=== PATIENT | female | born 1985 | race Caucasian/White ===

== ENCOUNTER → 2017-07-31 | Outpatient (CLI) | payer BC, MEDICAID ==
--- NOTE | 2017-07-31 16:43 | RADIOLOGY REPORT (SQ) ---
EXAM DESCRIPTION: KNEE RIGHT 3 VIEWS COMPLETED DATE/TIME: 07/31/2017 4:26 pm REASON FOR STUDY: LOCALIZED SWELLING, MASS AND LUMP, RIGHT LOWER LIMB R22.41 LOCALIZED SWELLING, MA SS AND LUMP, RIGHT LOWER LIMB COMPARISON: None. NUMBER OF VIEWS: Three views. TECHNIQUE: AP, lateral, and sunrise patella radiographic images acquired of the right knee. LIMITATIONS: None. FINDINGS: MINERALIZATION: Normal. BONES: No acute fracture or dislocation. No worrisome bone lesions. JOINT: No effusion. SOFT TISSUES: No soft tissue swelling. No radio-opaque foreign body. OTHER: No other significant finding. IMPRESSION: NEGATIVE STUDY OF THE RIGHT KNEE. NO RADIOGRAPHIC EVIDENCE OF ACUTE INJURY. TECHNICAL DOCUMENTATION: JOB ID: [id number] [email or web address]- All Rights Reserved
== END ==
LOC: OD 15:18
PROVIDERS: ATTEND Physician Assistant
DX: R22.41 Localized swelling, mass and lump, right lower limb (principal)

== ENCOUNTER 2019-04-22 10:15 | Outpatient (CLI) | payer MEDICAID | END 2019-04-22 11:35 | disposition home or self-care (01) | LOC: LC 10:15 | PROVIDERS: ATTEND Obstetrics & Gynecology | PROC: 4A1HXCZ Monitoring of Products of Conception, Cardiac Rate, External Approach (ICD-10-PCS; principal; 2019-04-22) | DX: O36.8330 Maternal care for abnormalities of the fetal heart rate or rhythm, third trimester, not applicable or unspecified (principal); Z3A.34 34 weeks gestation of pregnancy | CPT/HCPCS: 59025 ==

== ENCOUNTER → 2019-05-04 | Outpatient (CLI) | payer MEDICAID ==
--- NOTE | 2019-05-04 15:22 | RADIOLOGY REPORT (SQ) ---
EXAM DESCRIPTION: VENOUS BILATERAL LOWER COMPLETED DATE/TIME: 05/04/2019 1:38 pm REASON FOR STUDY: EDEMA COMPARISON: CT abdomen and pelvis 08/25/2010 TECHNIQUE: Dynamic and static soriano scale and color images acquired of both lower extremity venous sy stems. Selected spectral images acquired with additional compression and augmentation maneuvers. Imag es stored on PACS. LIMITATIONS: None. FINDINGS: RIGHT LEG COMMON FEMORAL AND FEMORAL: Normal phasicity, compression and augmentation. No visualized echogenic m aterial on soriano scale. No defects on color images. POPLITEAL: Normal compression and augmentation. No visualized echogenic material on soriano scale. No de fects on color images. CALF VESSELS: Normal compression and augmentation. No visualized echogenic material on soriano scale. No defects on color image. GSV AND SSV: Normal compression. No visualized echogenic material on soriano scale. No defects on color images. ANY DEEP VENOUS INSUFFICIENCY: Not evaluated. ANY EVIDENCE OF POPLITEAL CYST: No. OTHER: No other significant finding. LEFT LEG COMMON FEMORAL AND FEMORAL: Normal phasicity, compression and augmentation. No visualized echogenic m aterial on soriano scale. No defects on color images. POPLITEAL: Normal compression and augmentation. No visualized echogenic material on soriano scale. No de fects on color images. CALF VESSELS: Normal compression and augmentation. No visualized echogenic material on soriano scale. No defects on color images. GSV AND SSV: Normal compression. No visualized echogenic material on soriano scale. No defects on color images. ANY DEEP VENOUS INSUFFICIENCY: Not evaluated. ANY EVIDENCE POPLITEAL CYST: No. OTHER: No other significant finding. IMPRESSION: NO EVIDENCE DVT OR SVT IN EITHER LEG. TECHNICAL DOCUMENTATION: JOB ID: [id number] [place] [employer]- All Rights Reserved Reading location - IP/workstation name: [email or web address] [email or web address]
== END ==
LOC: SP 11:15
PROVIDERS: ATTEND Advanced Practice Midwife
DX: O26.893 Other specified pregnancy related conditions, third trimester (principal); I83.93 Asymptomatic varicose veins of bilateral lower extremities; R60.0 Localized edema; Z3A.34 34 weeks gestation of pregnancy
CPT/HCPCS: 93970

== ENCOUNTER 2019-05-25 11:15 | Outpatient (CLI) | payer MEDICAID ==
[2019-05-25 12:08] LABS: APPEARANCE,URINE CLEAR; BILIRUBIN,URINE NEGATIVE (NEGATIVE); COLOR,URINE YELLOW; GLUCOSE, URINE NEGATIVE (NEGATIVE); KETONES,URINE NEGATIVE (NEGATIVE); LEUKOCYTE ESTERASE,URINE NEGATIVE (NEGATIVE); NITRITE,URINE NEGATIVE (NEGATIVE); PROTEIN,URINE NEGATIVE (NEGATIVE); URINE SPECIFIC GRAVITY 1.006; UROBILINOGEN,URINE NEGATIVE mg/dL (<2.0)
[2019-05-25 12:17] LABS: ABSOLUTE EOSINOPHILS # (AUTO) 0.1 10^3/uL (0.0-0.6); ABSOLUTE LYMPHOCYTES (AUTO) 2.1 10^3/uL (0.5-4.7); ABSOLUTE MONOCYTES (AUTO) 0.8 10^3/uL (0.1-1.4); ABSOLUTE NEUT (AUTO) 7.4 10^3/uL (1.7-8.2); BASOPHILS % (AUTO) 0.3 % (0-2); EOSINOPHILS % (AUTO) 1.3 % (0-6); HEMATOCRIT 35.2 % (36.0-47.0); HEMOGLOBIN 12.1 g/dL (12.0-15.5); MEAN CORPUSCULAR HEMOGLOBIN 32.3 pg (27.0-33.4); MEAN CORPUSCULAR HGB CONC 34.4 g/dL (32.0-36.0); MEAN CORPUSCULAR VOLUME 94 fl (80-97); MONOCYTES % (AUTO) 7.3 % (3-13); PLATELET COUNT 188 10^3/uL (150-450); RED BLOOD COUNT 3.75 10^6/uL (3.72-5.28); RED CELL DISTRIBUTION WIDTH 13.5 % (11.5-14.0); SEGMENTED NEUTROPHILS % (AUTO) 71.1 % (42-78); TOTAL CELLS COUNTED % (AUTO) 100 %; WHITE BLOOD COUNT 10.4 10^3/uL (4.0-10.5)
[2019-05-25 12:31] LABS: ALBUMIN 2.9 g/dL (3.5-5.0); ALKALINE PHOSPHATASE 193 U/L (38-126); ANION GAP 6 (5-19); ASPARTATE AMINO TRANSFERASE 29 U/L (14-36); BILIRUBIN,DIRECT 0.2 mg/dL (0.0-0.4); BILIRUBIN,TOTAL 0.3 mg/dL (0.2-1.3); BLOOD UREA NITROGEN 4 mg/dL (7-20); CALCIUM 8.8 mg/dL (8.4-10.2); CARBON DIOXIDE 26 mmol/L (22-30); CHLORIDE 107 mmol/L (98-107); GLUCOSE 80 mg/dL (75-110); POTASSIUM 3.5 mmol/L (3.6-5.0); TOTAL PROTEIN 6.1 g/dL (6.3-8.2); URIC ACID 4.1 mg/dL (2.5-6.2)
[2019-05-25 12:34] LABS: URINE AMPHETAMINES SCREEN NEGATIVE; URINE BARBITURATES SCREEN NEGATIVE; URINE BENZODIAZEPINES SCREEN NEGATIVE; URINE COCAINE SCREEN NEGATIVE; URINE MARIJUANA (THC) SCREEN NEGATIVE; URINE METHADONE SCREEN NEGATIVE; URINE PHENCYCLIDINE SCREEN NEGATIVE
[2019-05-25 12:35] LABS: UR PRO/CREAT RATIO RESULT 0.5 mg/mg (0.0-0.2); URINE PROTEIN 21.5 mg/dL (<12)
--- NOTE | 2019-05-25 14:02 | Non Stress Test Report ---
Non Stress Test Datetime Report Generated by CPN: 05/25/2019 14:02 DEMOGRAPHIC EGA NST: 39.0 EGA NST: 34.2 INDICATION Indication for Study (NST) Other: pre-eclampsia Indication for Study (NST) Other: variable in office MONITORING Monitor Explained: Monitor Explained; Test Explained; Patient Verbalized Understanding Monitor Explained: Monitor Explained; Test Explained; Patient Verbalized Understanding Time on Monitor: 05/25/2019 11:35 Time on Monitor: 04/22/2019 10:25 Time on Monitor: 04/22/2019 10:24 Time off Monitor: 05/25/2019 12:58 Time off Monitor: 04/22/2019 11:27 NST Duration: 83 NST Duration: 62 NST INTERVENTIONS NST Interventions: PO Hydration; Reposition Patient NST Interventions: PO Hydration NST Interventions: PO Hydration Physician Notified NST: Dr Gaming Physician Notified NST: C [place] BABY A: [id number] BABY A Movement : Present Movement : Present Contraction Frequency : 0 Contraction Frequency : none noted Contraction Frequency : none noted FHR Baseline : 130 FHR Baseline : 125 Accelerations : 15X15 Accelerations : 15X15 Decelerations : None Decelerations : None Variability : Moderate 6-25bpm Variability : Moderate 6-25bpm NST Review: Meets Criteria for Reactive NST NST Review: Meets Criteria for Reactive NST NST Review: Meets Criteria for Reactive NST NST Review and Verified By : NGOC GREENE RN NST Review and Verified By : Leena Gil RNC NST Results: Reactive NST Results: Reactive NST COMMENTS NST Comments: Plan discussed with Sophie Alba CNM NST REPORT Report Trigger: Send Report
== END 2019-05-25 14:22 | disposition home or self-care (01) ==
LOC: LC 11:15
PROVIDERS: ATTEND Obstetrics & Gynecology Gynecology
PROC: 4A1HXCZ Monitoring of Products of Conception, Cardiac Rate, External Approach (ICD-10-PCS; principal; 2019-05-25)
DX: O14.93 Unspecified pre-eclampsia, third trimester (principal); Z3A.38 38 weeks gestation of pregnancy
CPT/HCPCS: 59025; 80053; 80307; 81001; 82570; 83615; 84156; 84550; 85025

== ENCOUNTER 2019-05-28 12:27 | Outpatient (CLI) | payer MEDICAID ==
[2019-05-28 13:52] LABS: ABSOLUTE EOSINOPHILS # (AUTO) 0.1 10^3/uL (0.0-0.6); ABSOLUTE LYMPHOCYTES (AUTO) 1.8 10^3/uL (0.5-4.7); ABSOLUTE MONOCYTES (AUTO) 0.7 10^3/uL (0.1-1.4); ABSOLUTE NEUT (AUTO) 7.4 10^3/uL (1.7-8.2); BASOPHILS % (AUTO) 0.3 % (0-2); EOSINOPHILS % (AUTO) 0.9 % (0-6); HEMATOCRIT 36.4 % (36.0-47.0); HEMOGLOBIN 12.6 g/dL (12.0-15.5); LYMPHOCYTES % (AUTO) 17.6 % (13-45); MEAN CORPUSCULAR HEMOGLOBIN 32.4 pg (27.0-33.4); MEAN CORPUSCULAR HGB CONC 34.5 g/dL (32.0-36.0); MEAN CORPUSCULAR VOLUME 94 fl (80-97); MONOCYTES % (AUTO) 6.9 % (3-13); PLATELET COUNT 186 10^3/uL (150-450); RED BLOOD COUNT 3.88 10^6/uL (3.72-5.28); RED CELL DISTRIBUTION WIDTH 13.5 % (11.5-14.0); SEGMENTED NEUTROPHILS % (AUTO) 74.3 % (42-78); TOTAL CELLS COUNTED % (AUTO) 100 %
[2019-05-28 13:59] LABS: APPEARANCE,URINE SLIGHTLY-CLOUDY; BILIRUBIN,URINE NEGATIVE (NEGATIVE); COLOR,URINE YELLOW; GLUCOSE, URINE NEGATIVE (NEGATIVE); KETONES,URINE NEGATIVE (NEGATIVE); LEUKOCYTE ESTERASE,URINE NEGATIVE (NEGATIVE); NITRITE,URINE NEGATIVE (NEGATIVE); PROTEIN,URINE NEGATIVE (NEGATIVE); URINE SPECIFIC GRAVITY 1.009; UROBILINOGEN,URINE NEGATIVE mg/dL (<2.0)
[2019-05-28 14:13] LABS: ALKALINE PHOSPHATASE 200 U/L (38-126); ANION GAP 8 (5-19); ASPARTATE AMINO TRANSFERASE 31 U/L (14-36); BILIRUBIN,DIRECT 0.2 mg/dL (0.0-0.4); BILIRUBIN,TOTAL 0.5 mg/dL (0.2-1.3); BLOOD UREA NITROGEN 5 mg/dL (7-20); CARBON DIOXIDE 26 mmol/L (22-30); CHLORIDE 105 mmol/L (98-107); GLUCOSE 70 mg/dL (75-110); POTASSIUM 3.3 mmol/L (3.6-5.0); TOTAL PROTEIN 6.3 g/dL (6.3-8.2); URIC ACID 4.3 mg/dL (2.5-6.2)
[2019-05-28 14:48] LABS: UR PRO/CREAT RATIO RESULT 0.4 mg/mg (0.0-0.2); URINE CREATININE 63.4 mg/dL (16-327); URINE PROTEIN 22.3 mg/dL (<12)
[2019-05-28 14:52] LABS: URINE AMPHETAMINES SCREEN NEGATIVE; URINE BARBITURATES SCREEN NEGATIVE; URINE BENZODIAZEPINES SCREEN NEGATIVE; URINE COCAINE SCREEN NEGATIVE; URINE MARIJUANA (THC) SCREEN NEGATIVE; URINE METHADONE SCREEN NEGATIVE; URINE PHENCYCLIDINE SCREEN NEGATIVE
== END 2019-05-28 15:16 | disposition home or self-care (01) ==
LOC: LC 12:27
PROVIDERS: ATTEND Obstetrics & Gynecology
PROC: 4A1HXCZ Monitoring of Products of Conception, Cardiac Rate, External Approach (ICD-10-PCS; principal; 2019-05-28)
DX: O14.93 Unspecified pre-eclampsia, third trimester (principal); Z3A.38 38 weeks gestation of pregnancy
CPT/HCPCS: 36415; 59025; 80053; 80307; 81001; 82570; 83615; 84156; 84550; 85025; 86850; 86900; 86901

== ENCOUNTER 2019-05-29 01:18 | Inpatient (IN) | payer MEDICAID ==
[2019-05-29 01:56] LABS: APPEARANCE,URINE CLEAR; BILIRUBIN,URINE NEGATIVE (NEGATIVE); GLUCOSE, URINE NEGATIVE (NEGATIVE); KETONES,URINE NEGATIVE (NEGATIVE); LEUKOCYTE ESTERASE,URINE TRACE (NEGATIVE); NITRITE,URINE NEGATIVE (NEGATIVE); PROTEIN,URINE NEGATIVE (NEGATIVE); URINE SPECIFIC GRAVITY 1.002; UROBILINOGEN,URINE NEGATIVE mg/dL (<2.0)
[2019-05-29 01:57] LABS: COLOR,URINE YELLOW
[2019-05-29 02:09] LABS: URINE AMPHETAMINES SCREEN NEGATIVE; URINE BARBITURATES SCREEN NEGATIVE; URINE BENZODIAZEPINES SCREEN NEGATIVE; URINE COCAINE SCREEN NEGATIVE; URINE MARIJUANA (THC) SCREEN NEGATIVE; URINE METHADONE SCREEN NEGATIVE; URINE PHENCYCLIDINE SCREEN NEGATIVE
--- NOTE | 2019-05-29 02:53 | Admission Physical ---
Datetime Report Generated by CPN: 05/29/2019 02:53 CURRENT ADMISSION Chief Complaint: Uterine Contractions Indication for Induction: Not Applicable Admit Impression : Term, Intrauterine ; Active Labor; Intact Membranes Admit Plan: Admit to Unit; Initiate Labor Protocol ALLERGIES Medication Allergies: Yes Medication Allergies: No Known Allergies (05/29/2019) Latex: No Latex Allergies Food Allergies: no Environmental Allergies: no OBSTETRICAL HISTORY EDC: 06/01/2019 00:00 : 3 Para: 2 Term: 2 : 0 SAB: 0 IAB: 0 Livin Gestational Diabetes: No Rh Sensitization: No Incompetent Cervix: No FELICITY: No Infertility: No ART Treatment: No Uterine Anomaly: No IUGR: No Hx Previous C/S: No Macrosomia: No Hx Loss/Stillborn: No PIH: Yes Hx : No Placenta Previa/Abruption: No Depression/PP Depression: No PTL/PROM: No Post Hemorrhage: No Current Procedures: Ultrasound; NST Obstetrical History Comments: g1-2013 girl g2-2015 boy g3- current baby boy SEE RECORDS Alcohol: No Marijuana : No Cocaine: No Other Illicit Drugs: No Cigarettes: Current Everyday Smoker. 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 Heart Disease: No Hosp/Surgery: No Autoimmune Disorder: No Anesthetic Complications: No Kidney Disease: No Abnormal Pap Smear: No Neuro/Epilepsy: No Psychiatric Disorders: No Other Medical Diseases: No Hepatitis/Liver Disease: No Significant Family History: No Varicosities/Phlebitis: No Trauma/Violence : No Thyroid Dysfunction: No INFECTIOUS HISTORY Gonorrhea: No Genital Herpes: No Chlamydia: No Tuberculosis: No Syphilis: No Hepatitis: No HIV/AIDS Exposure: No Rash or Viral Illness: No HPV: No PHYSICAL EXAM General: Normal HEENT: Normal Neurologic: Normal Thyroid: Normal Heart: Normal Lungs: Normal Breast: Normal Back: Normal Abdomen: Normal Genitourinary Exam: Normal Extremities: Normal DTRs: Normal Pelvic Type: Adequate Vital Signs: Reviewed; Within Normal Limits VAGINAL EXAM Dilatation: 4 Effacement: 70 Station: -2 Contraction Comments: irregular MEMBRANES Membranes: Intact FETUS A EGA: 39.4 Monitoring: External US FHR- Baseline: 120s Variability: Moderate 6-25bpm Accelerations: 15X15 Decelerations: None FHR Category: Category I Admit Comment: w/ an IUP@ 39-3/7 weeks presented to L_D c/o contractions. She reports good movement. She was seen earlier today for a Pre-eclampsia work up. Her 24 h urine from Saturday was 468 mg. Her labs are WNL and she is currently asymptomatic. She is GBS Neg. Her cervix was 3 cm earlier today and she has progressed to 4 cm. GBS Neg. Will start pitocin. PLANS FOR LABOR AND DELIVERY Labor and Delivery: None Pain Management: Epidural Feeding Preference: Breast Benefit of Breast Feed Discussed: Yes Circumcision: Yes INFORMED CONSENT Signature: with User ID: [email or web address]
[2019-05-29] MEDS ORDERED: OXYTOCIN 10 UNIT/ML VIAL ONE (02:57)
[2019-05-29] MEDS ORDERED: MISOPROSTOL 0.2 MG TABLET ONE (02:58)
[2019-05-29] MEDS ORDERED: OXYTOCIN/NORMAL SALINE 20 UNIT/1,000 ML RTUINJ ONE (02:58)
[2019-05-29] MEDS ORDERED: LIDOCAINE 1% INJ-PF (10 MG/ML) 30 ML SDV ONE (02:58)
[2019-05-29] MEDS ORDERED: RINGERS SOLUTION,LACTATED 1,000 ML IV PRN (02:59)
[2019-05-29 03:14] LABS: ABSOLUTE EOSINOPHILS # (AUTO) 0.1 10^3/uL (0.0-0.6); ABSOLUTE LYMPHOCYTES (AUTO) 2.2 10^3/uL (0.5-4.7); ABSOLUTE MONOCYTES (AUTO) 0.9 10^3/uL (0.1-1.4); ABSOLUTE NEUT (AUTO) 8.4 10^3/uL (1.7-8.2); BASOPHILS % (AUTO) 0.3 % (0-2); EOSINOPHILS % (AUTO) 0.9 % (0-6); HEMATOCRIT 35.5 % (36.0-47.0); HEMOGLOBIN 12.2 g/dL (12.0-15.5); LYMPHOCYTES % (AUTO) 18.8 % (13-45); MEAN CORPUSCULAR HGB CONC 34.3 g/dL (32.0-36.0); MEAN CORPUSCULAR VOLUME 93 fl (80-97); MONOCYTES % (AUTO) 8.1 % (3-13); PLATELET COUNT 171 10^3/uL (150-450); RED CELL DISTRIBUTION WIDTH 13.6 % (11.5-14.0); SEGMENTED NEUTROPHILS % (AUTO) 71.9 % (42-78); TOTAL CELLS COUNTED % (AUTO) 100 %; WHITE BLOOD COUNT 11.7 10^3/uL (4.0-10.5)
[2019-05-29] MEDS ORDERED: PHENYLEPHRINE HCL INJ/PF 10 MG/1 ML SDV ONE (03:24)
[2019-05-29] MEDS ORDERED: FENTANYL CITRATE INJ/PF 100 MCG/2 ML AMPUL ONE (03:24)
[2019-05-29] MEDS ORDERED: EPHEDRINE SULFATE INJ 50 MG/1 ML AMPULE ONE (03:24)
[2019-05-29] MEDS ORDERED: FENTANYL/BUPIVACAINE/NS/PF 300 MCG/150 ML RTUINJ EPI ONE (03:25)
[2019-05-29] MEDS ORDERED: BUPIVACAINE HCL 0.25 % INJ/PF (2.5 MG/1 ML) 30 ML VIAL ONE (03:25)
[2019-05-29] MEDS ORDERED: ONDANSETRON HCL INJ/PF 4 MG/2 ML SDV ONE (03:30)
[2019-05-29] MEDS ORDERED: ONDANSETRON HCL INJ/PF 4 MG/2 ML SDV IV ONE (03:41)
[2019-05-29] MEDS ORDERED: LIDOCAINE 2%/EPINEPHRINE INJ 20 ML VIAL ONE (06:34)
[2019-05-29] MEDS ORDERED: OXYTOCIN/NORMAL SALINE 20 UNIT/1,000 ML RTUINJ IV PRN (08:11)
[2019-05-29] MEDS ORDERED: DIBUCAINE 1% OINTMENT 28 GM TP PRN (08:11)
[2019-05-29] MEDS ORDERED: BENZOCAINE/MENTHOL AEROSOL SPRAY 56 ML TOP PRN (08:11)
[2019-05-29] MEDS ORDERED: DIPH/PERTUSS(ACELL)/TETANUS VAC/PF 0.5 ML SYR (>=10YO) IM PRN (08:11)
[2019-05-29] MEDS ORDERED: ACETAMINOPHEN WITH CODEINE #3 TABLET PO PRN ×2 (08:11)
[2019-05-29] MEDS ORDERED: ZOLPIDEM TARTRATE 5 MG TABLET PO PRN (08:11)
[2019-05-29] MEDS ORDERED: BENZOCAINE/MENTHOL AEROSOL SPRAY 56 ML ONE (08:18)
[2019-05-29] MEDS ORDERED: IBUPROFEN 800 MG TABLET ONE (08:18)
--- NOTE | 2019-05-29 08:22 | Warning Signs in Babies ---
VOD Warning Signs Datetime Report Generated by [facility]: 05/29/2019 08:21 VOD#608 -Warning Signs in Babies: Needs to be viewed. (04/22/2019 10:25:Lyly Olivera RN)
--- NOTE | 2019-05-29 09:23 | Delivery Summary ---
Del Sum A-C Datetime Report Generated by CPN: 05/29/2019 09:23 DELIVERY PERSONNEL DELIVERY PERSONNEL: [id number] Delivery Doctor:: Danielle Quezada MD Labor and Delivery Nurse:: Lyly Olivera RNcrime analyst Nurse:: Viviane Ross RN Nursery Nurse:: Wendy Franklin RN Assistant Accounting Manager/MEMORIAL ADVISER: ST Bertha Assistant Accounting Manager/MEMORIAL ADVISER: chloé Drake Additional Personnel: : Leena Gil, RNC MATERNAL INFORMATION Delivery Anesthesia: Epidural Medications After Delivery: Pitocin Bolus-Please Comment Meds After Delivery Comment: Pitocin 20 units in 1000 ml nss open for bolus after delivery of placenta Maternal Complications: None Provider Comments: of a viable male @ 0751 w/ an OA presentation; APGARS 8, 9; no lacs LABOR SUMMARY EDC: 06/01/2019 00:00 No. Babies in Womb: 1 Attempted: No Labor Anesthesia: Epidural LABOR INFORMATION Reason for Induction: Not Applicable Onset of Labor: 05/29/2019 04:08 Complete Dilatation: 05/29/2019 07:39 Oxytocin: N/A Group B Beta Strep: negative Antibiotics # of Doses: 0 Antibiotics Time of Last Dose: n/a Name of Antibiotic Given: n/a Steroids Given: None Reason Steroids Not Administered: Not Applicable MEMBRANES Membranes Rupture Method: Spontaneous Rupture of Membranes: 05/29/2019 07:09 Length of Rupture (hr): 0.70 Amniotic Fluid Color: Clear Amniotic Fluid Amount: Moderate Amniotic Fluid Odor: Normal STAGES OF LABOR Stage 1 hr: 3 Stage 1 min: 31 Stage 2 hr: 0 Stage 2 min: 12 Stage 3 hr: 0 Stage 3 min: 6 Total Time in Labor hr: 3 Total Time in Labor min: 49 VAGINAL DELIVERY Episiotomy: None Laceration #1: None Laceration Extension #1: N/A Laceration Repair: Not Applicable Sponge Count Correct: Yes Sharps Count Correct: Yes CSECTION DELIVERY Primary Indication: N/A Secondary Indication: N/A CSection Incidence: N/A Labor: N/A Elective: N/A CSection Incision: N/A BABY A INFORMATION Delivery Date/Time: 05/29/2019 07:51 Method of Delivery: Vaginal Born in Route : No : N/A Forceps: N/A Vacuum Extraction: N/A Shoulder Dystocia : No PRESENTATION/POSITION BABY A Presentation: Cephalic Cephalic Presentation: Vertex Vertex Position: Occipital Anterior Breech Presentation: N/A PLACENTA INFORMATION BABY A Placenta Delivery Time : 05/29/2019 07:57 Placenta Method of Delivery: Spontaneous Placenta Status: Delivered SCORES BABY A Heart Rate 1 min: >100 bpm Resp Effort 1 min: Good Cry Reflex Irritability 1 min: Cough or Sneeze or Pulls Away Muscle Tone 1 min: Some Flexion of Extremities Color 1 min: Body Yeoman, Extremities Blue Resuscitation Effort 1 min: Tactile Stimulation SCORE 1 MIN: 8 Heart Rate 5 min: >100 bpm Resp Effort 5 min: Good Cry Reflex Irritability 5 min: Cough or Sneeze or Pulls Away Muscle Tone 5 min: Active Motion Color 5 min: Body Yeoman, Extremities Blue Resuscitation Effort 5 min: Tactile Stimulation SCORE 5 MIN: 9 INFANT INFORMATION BABY A Gestational Age at Delivery: 39.4 Gestational Status: Full Term- 39- 40.6 Weeks Infant Outcome : Liveborn Infant Condition : Stable Infant Sex: Male IDENTIFICATION BABY A Infant Verification Date/Time: 05/29/2019 09:13 ID Band Number: [id number] Mother's Name Verified: Yes RN Verifying : R Vandana, RN Additional Verifying Personnel: B Albaro, RN WEIGHT/LENGTH BABY A Infant Birthweight (gm): 3198 Infant Weight (lb): 7 Weight (oz): 1 Length (in): 19.00 Infant Length (cm): 48.26 CORD INFORMATION BABY A No. Cord Vessels: 3 Nuchal Cord : N/A Cord Blood Taken: Yes-For Eval (Mom's Blood Type - or O+) Suction: None ASSESSMENT BABY A Skin to Skin: Yes BABY B INFORMATION : N/A SIGNATURES Signature: with User ID: [email or web address]
[2019-05-29] MEDS ORDERED: INFLUENZA QUAD (6MOS+) 2019-20 VAC 0.5 ML SYR IM ONE (15:56)
[2019-05-29] MEDS: IBUPROFEN 800 MG TABLET PO SCH ×2 (18:08→21:19)
[2019-05-29] MEDS: DOCUSATE SODIUM 100 MG CAPSULE PO SCH ×2 (18:09)
[2019-05-29] MEDS: FERROUS SULFATE 325 MG TABLET PO SCH ×2 (18:09)
[2019-05-30] MEDS: IBUPROFEN 800 MG TABLET PO SCH ×3 (06:41→21:36)
[2019-05-30 07:24] LABS: HEMATOCRIT 34.4 % (36.0-47.0); HEMOGLOBIN 11.7 g/dL (12.0-15.5); MEAN CORPUSCULAR HEMOGLOBIN 32.1 pg (27.0-33.4); MEAN CORPUSCULAR VOLUME 95 fl (80-97); PLATELET COUNT 148 10^3/uL (150-450); RED BLOOD COUNT 3.64 10^6/uL (3.72-5.28); RED CELL DISTRIBUTION WIDTH 13.6 % (11.5-14.0); WHITE BLOOD COUNT 15.2 10^3/uL (4.0-10.5)
[2019-05-30] MEDS: DOCUSATE SODIUM 100 MG CAPSULE PO SCH ×2 (10:58→17:18)
[2019-05-30] MEDS: SENNOSIDES/DOCUSATE 8.6-50 MG 1 EACH TABLET PO SCH ×2 (10:58→17:05)
[2019-05-30] MEDS: PRENATAL VITAMIN W DHA CAPSULE PO SCH ×2 (10:58→17:05)
[2019-05-30] MEDS: FERROUS SULFATE 325 MG TABLET PO SCH ×2 (10:58→17:18)
--- NOTE | 2019-05-30 11:57 | PDOC PROGRESS REPORT ---
Subjective-OB Progress Note for:: 05/30/19 - PP day #1, doing well, O+, , Hx of being on Subutex this , D/c urban planner in place Physical Exam (OB) Vital Signs: Temp Pulse Resp BP Pulse Ox 97.6 F 56 L 18 133/75 H 100 05/30/19 08:00 05/30/19 08:00 05/30/19 08:00 05/30/19 08:00 05/30/19 08:00 Intake & Output 05/29/19 05/30/19 05/31/19 06:59 06:59 06:59 Intake Total 600 100 Balance 600 100 Weight 87.5 kg - General General Appearance: Appears well, Alert - PIH/Pre-Eclampsia Clonus: Negative Headache: Absent Epigastric Pain: No Visual Changes: No - Lochia Lochia Amount: Small 10-25 ml Lochia Color: Rubra/Red - Abdomen Description: Soft Hernia Present: No Fundal Description: Firm, Midline Fundal Height: u/3 - u/4 - Respiratory Respiratory Status: No respiratory distress - Abdominal Distension: No distension Tenderness: Nontender - Genitourinary Genitourinary Note: voiding - Extremities Upper extremity: Normal inspection Lower extremities: Normal inspection - Neurological Cognition: Normal Orientation: AAOx4 - Psychological Associated symptoms: Normal affect, Normal mood - Skin Skin Temperature: Warm Skin Moisture: Dry Objective-Diagnostic Laboratory: 05/30/19 07:05 05/30/19 07:05 WBC 15.2 H RBC 3.64 L Hgb 11.7 L Hct 34.4 L MCV 95 MCH 32.1 MCHC 34.0 RDW 13.6 Plt Count 148 L Assessment and Plan(PN) - Assessment and Plan (2) Preeclampsia Qualifiers: Trimester: third trimester Qualified Code(s): O14.93 - Unspecified pre- eclampsia, third trimester Is this a current diagnosis for this admission?: Yes (3) Vaginal delivery Is this a current diagnosis for this admission?: Yes Plan:: ambulation encouraged, watch BP, Routine PP orders - Time Spent with Patient Time with patient: Less than 15 minutes Medications reviewed and adjusted accordingly: Yes - Disposition Anticipated Discharge: Home Within: within 24 hours
[2019-05-31] MEDS: IBUPROFEN 800 MG TABLET PO SCH ×2 (05:49→15:40)
[2019-05-31 09:41] VITALS: BP 133/75
[2019-05-31] MEDS: FERROUS SULFATE 325 MG TABLET PO SCH (10:23)
[2019-05-31] MEDS: DOCUSATE SODIUM 100 MG CAPSULE PO SCH (10:23)
[2019-05-31] MEDS: SENNOSIDES/DOCUSATE 8.6-50 MG 1 EACH TABLET PO SCH (10:23)
[2019-05-31] MEDS: PRENATAL VITAMIN W DHA CAPSULE PO SCH (10:23)
--- NOTE | 2019-05-31 10:54 | PDOC DISCHARGE SUMMARY ---
Impression - Admit/DC Date/PCP Admission Date/Primary Care Provider: 05/29/19 02:05 AMELIA ESTRADA MD Discharge Date: 05/31/19 - PP Day #2, doing well, baby needs to remain in hospital due to mother being on Subutex, pt desires to Nest. O+, Rubella Immune, - Discharge Diagnosis (1) Normal course Is this a current diagnosis for this admission?: Yes (2) Preeclampsia Is this a current diagnosis for this admission?: Yes (3) Vaginal delivery Is this a current diagnosis for this admission?: Yes (4) complicated by subutex maintenance, antepartum Is this a current diagnosis for this admission?: Yes (5) Tobacco use complicating Is this a current diagnosis for this admission?: Yes - Additional Information Resuscitation Status: Full Code Discharge Diet: As Tolerated, Regular Discharge Activity: Activity As Tolerated, No Lifting Over 10 Pounds, Pelvic Rest Referrals: AMELIA ESTRADA MD [Primary Care Provider] - Prescriptions: Ibuprofen [Motrin 800 mg Tablet] 800 mg PO Q8 #60 tablet Home Medications: Buprenorphine HCl [Subutex 8 mg Sublingual Tablet] 8 mg SL DAILY 03/23/16 No122/Iron/Folic Acid [ Multi Tablet] 1 each PO DAILY 04/22/19 Ibuprofen [Motrin 800 mg Tablet] 800 mg PO Q8 #60 tablet 05/31/19 HPI Reason(s) for Admission: Onset of Labor Procedures: NST, Ultrasound Intrapartum Procedure(s): Spontaneous Vaginal Delivery Hospital Course Hospital Course: routine PP course Results Laboratory Results: WBC 15.2 10^3/uL (4.0-10.5) H 05/30/19 07:05 RBC 3.64 10^6/uL (3.72-5.28) L 05/30/19 07:05 Hgb 11.7 g/dL (12.0-15.5) L 05/30/19 07:05 Hct 34.4 % (36.0-47.0) L 05/30/19 07:05 MCV 95 fl (80-97) 05/30/19 07:05 MCH 32.1 pg (27.0-33.4) 05/30/19 07:05 MCHC 34.0 g/dL (32.0-36.0) 05/30/19 07:05 RDW 13.6 % (11.5-14.0) 05/30/19 07:05 Plt Count 148 10^3/uL (150-450) L 05/30/19 07:05 Lymph % (Auto) 18.8 % (13-45) 05/29/19 02:25 [place] % (Auto) 8.1 % (3-13) 05/29/19 02:25 Eos % (Auto) 0.9 % (0-6) 05/29/19 02:25 Baso % (Auto) 0.3 % (0-2) 05/29/19 02:25 Absolute Neuts (auto) 8.4 10^3/uL (1.7-8.2) H 05/29/19 02:25 Absolute Lymphs (auto) 2.2 10^3/uL (0.5-4.7) 05/29/19 02:25 Absolute Monos (auto) 0.9 10^3/uL (0.1-1.4) 05/29/19 02:25 Absolute Eos (auto) 0.1 10^3/uL (0.0-0.6) 05/29/19 02:25 Absolute Basos (auto) 0.0 10^3/uL (0.0-0.2) 05/29/19 02:25 Seg Neutrophils % 71.9 % (42-78) 05/29/19 02:25 Urine Color YELLOW 05/29/19 01:25 Urine Appearance CLEAR 05/29/19 01:25 Urine pH 8.0 (5.0-9.0) 05/29/19 01:25 Ur Specific [place] 1.002 05/29/19 01:25 Urine Protein NEGATIVE mg/dL (NEGATIVE) 05/29/19 01:25 Urine Glucose (UA) NEGATIVE mg/dL (NEGATIVE) 05/29/19 01:25 Urine Ketones NEGATIVE mg/dL (NEGATIVE) 05/29/19 01:25 Urine Blood SMALL (NEGATIVE) H 05/29/19 01:25 Urine Nitrite NEGATIVE (NEGATIVE) 05/29/19 01:25 Urine Bilirubin NEGATIVE (NEGATIVE) 05/29/19 01:25 Urine Urobilinogen NEGATIVE mg/dL (<2.0) 05/29/19 01:25 Ur Leukocyte Esterase TRACE (NEGATIVE) H 05/29/19 01:25 Urine WBC (Auto) 6 /HPF 05/29/19 01:25 Urine RBC (Auto) 0 /HPF 05/29/19 01:25 U Hyaline Cast (Auto) 1 /LPF 05/29/19 01:25 Urine Bacteria (Auto) TRACE /HPF 05/29/19 01:25 Squamous Epi Cells Auto 4 /HPF 05/29/19 01:25 Urine Mucus (Auto) RARE /LPF 05/29/19 01:25 Urine Ascorbic Acid NEGATIVE (NEGATIVE) 05/29/19 01:25 Membranes Rupture NEGATIVE (NEGATIVE) 05/29/19 01:50 Urine Opiates Screen NEGATIVE 05/29/19 01:25 Urine Methadone Screen NEGATIVE 05/29/19 01:25 Ur Barbiturates Screen NEGATIVE 05/29/19 01:25 Ur Phencyclidine Scrn NEGATIVE 05/29/19 01:25 Ur Amphetamines Screen NEGATIVE 05/29/19 01:25 U Benzodiazepines Scrn NEGATIVE 05/29/19 01:25 Urine Cocaine Screen NEGATIVE 05/29/19 01:25 U Marijuana (THC) Screen NEGATIVE 05/29/19 01:25 RPR NONREACTIVE (NONREACTIVE) 05/29/19 02:25 Blood Type O POSITIVE 05/29/19 02:25 Cord Blood Type Cancelled 05/29/19 07:51 Antibody Screen NEGATIVE 05/29/19 02:25 Mother's Antibody Screen Cancelled 05/29/19 07:51 Mother's Med Rec Num Cancelled 05/29/19 07:51 Mother's Blood Type Cancelled 05/29/19 07:51 Plan Health Concerns: Hx subutex during , Plan of Treatment: d/c home, f/u with [facility] in 4 wks Time Spent: Less than 30 Minutes
== END 2019-05-31 16:00 | disposition home or self-care (01) | DRG 807 ==
LOC: LC 01:18 → LR 02:05 → 2S 12:10
PROVIDERS: ADMIT Obstetrics & Gynecology; ATTEND Obstetrics & Gynecology
PROC: 10E0XZZ Delivery of Products of Conception, External Approach (ICD-10-PCS; principal; 2019-05-29)
PROC: 3E02340 Introduction of Influenza Vaccine into Muscle, Percutaneous Approach (ICD-10-PCS; 2019-05-31)
DX: O75.89 Other specified complications of labor and delivery (principal); Z37.0 Single live birth; F17.210 Nicotine dependence, cigarettes, uncomplicated; O99.334 Smoking (tobacco) complicating childbirth; Z3A.39 39 weeks gestation of pregnancy; Z23 Encounter for immunization; Z79.899 Other long term (current) drug therapy; O14.94 Unspecified pre-eclampsia, complicating childbirth
CPT/HCPCS: 36415; 80307; 81001; 84112; 85025; 85027; 86592; 86850; 86900; 86901; 90686; 90715; J2370; J2405; J2590; J3010; J3490

== ENCOUNTER 2019-08-04 11:29 | Day surgery (SDC) | payer MEDICAID ==
[2019-07-29 10:32] LABS: HEMATOCRIT 39.5 % (36.0-47.0); HEMOGLOBIN 13.6 g/dL (12.0-15.5); MEAN CORPUSCULAR HEMOGLOBIN 31.3 pg (27.0-33.4); MEAN CORPUSCULAR HGB CONC 34.5 g/dL (32.0-36.0); MEAN CORPUSCULAR VOLUME 91 fl (80-97); PLATELET COUNT 275 10^3/uL (150-450); RED BLOOD COUNT 4.35 10^6/uL (3.72-5.28); RED CELL DISTRIBUTION WIDTH 13.2 % (11.5-14.0); WHITE BLOOD COUNT 9.5 10^3/uL (4.0-10.5)
[2019-07-29 10:34] LABS: APPEARANCE,URINE SLIGHTLY-CLOUDY; BILIRUBIN,URINE NEGATIVE (NEGATIVE); COLOR,URINE YELLOW; GLUCOSE, URINE NEGATIVE (NEGATIVE); KETONES,URINE NEGATIVE (NEGATIVE); LEUKOCYTE ESTERASE,URINE NEGATIVE (NEGATIVE); NITRITE,URINE NEGATIVE (NEGATIVE); PROTEIN,URINE NEGATIVE (NEGATIVE); URINE SPECIFIC GRAVITY 1.025
[~2019-08-04 11:29] MED LIST: BUPIVACAINE HCL 0.25 % INJ/PF (2.5 MG/1 ML) 30 ML VIAL ONE; CEFAZOLIN 1 GM/D5W RTU 1 GM/50 ML RTUPB IV PRN; LACTATED RINGERS 1000 ML IV PRN; LIDOCAINE 0.5% INJ-PF (5 MG/ML) 50 ML SDV SUBCUT PRN
[2019-08-04] MEDS ORDERED: CEFAZOLIN 1 GM/D5W RTU 1 GM/50 ML RTUPB IV ONE (12:08)
[2019-08-04] MEDS ORDERED: SCOPOLAMINE HYDROBROMIDE 1.5 MG PATCH.TD72 ONE (12:08)
[2019-08-04] MEDS ORDERED: MEPERIDINE HCL/PF INJ 25 MG/1 ML DISP.SYRIN IV PRN (12:28)
[2019-08-04] MEDS ORDERED: FENTANYL CITRATE INJ/PF 100 MCG/2 ML AMPUL IV PRN ×3 (12:28)
[2019-08-04] MEDS ORDERED: PROMETHAZINE HCL INJ 25 MG/1 ML VIAL IV PRN ×2 (12:28)
[2019-08-04] MEDS ORDERED: DIPHENHYDRAMINE HCL 50 MG/ML VIAL IV PRN (12:28)
[2019-08-04] MEDS ORDERED: OXYCODONE-ACETAMINOPHEN 5-325 MG TABLET PO PRN ×4 (12:28→14:42)
[2019-08-04] MEDS ORDERED: SCOPOLAMINE HYDROBROMIDE 1.5 MG PATCH.TD72 TD ONE (12:30)
[2019-08-04] MEDS ORDERED: ONDANSETRON HCL INJ/PF 4 MG/2 ML SDV ONE (12:38)
[2019-08-04] MEDS ORDERED: LIDOCAINE 2% INJ-PF (20 MG/ML) 2 ML AMPUL ONE (12:38)
[2019-08-04] MEDS ORDERED: SUCCINYLCHOLINE CHLORIDE INJ 200 MG/10 ML VIAL ONE (12:38)
[2019-08-04] MEDS ORDERED: DEXAMETHASONE SOD PHOSPHATE INJ 4 MG/1 ML VIAL ONE (12:38)
[2019-08-04] MEDS ORDERED: MIDAZOLAM 2 MG/2 ML INJ ONE (12:54)
[2019-08-04] MEDS ORDERED: FENTANYL CITRATE INJ/PF 100 MCG/2 ML AMPUL ONE (12:54)
[2019-08-04] MEDS ORDERED: PROPOFOL INJ 200 MG/20 ML VIAL IV ONE (12:54)
[2019-08-04] MEDS ORDERED: ACETAMINOPHEN 1,000 MG/100 ML RTUPB IV ONE (14:36)
[2019-08-04] MEDS ORDERED: KETOROLAC TROMETHAMINE INJ/PF 30 MG/1 ML SDV ONE (14:36)
[2019-08-04] MEDS ORDERED: RINGERS SOLUTION,LACTATED 1,000 ML IV PRN (14:39)
[2019-08-04] MEDS ORDERED: HYDROMORPHONE HCL INJ/PF 2 MG/ML AMPULE IV PRN (14:40)
[2019-08-04] MEDS ORDERED: IBUPROFEN 800 MG TABLET PO PRN (14:40)
[2019-08-04] MEDS ORDERED: ONDANSETRON HCL INJ/PF 4 MG/2 ML SDV IV PRN (14:43)
[2019-08-04] MEDS: FENTANYL CITRATE INJ/PF 100 MCG/2 ML AMPUL ONE ×2 (14:45→14:55)
[2019-08-04] MEDS ORDERED: KETOROLAC TROMETHAMINE INJ/PF 30 MG/1 ML SDV IV PRN (14:46)
[2019-08-04] MEDS ORDERED: ACETAMINOPHEN 1,000 MG/100 ML RTUPB IV PRN (14:46)
[2019-08-04] MEDS ORDERED: HYDROMORPHONE HCL INJ/PF 2 MG/ML AMPULE ONE (15:43)
[2019-08-04] MEDS ORDERED: OXYCODONE-ACETAMINOPHEN 5-325 MG TABLET ONE (16:24)
[2019-08-04 17:43] VITALS: BP 120/74
--- NOTE | 2019-08-12 10:23 | Operative Report ---
Operative Report DATE OF SURGERY: 09/02/19 PREOPERATIVE DIAGNOSIS: Multiparity, Undesired Fertility POSTOPERATIVE DIAGNOSIS: SAVANNA - 4 cm paratubal cyst on left OPERATION: Laparoscopic Bilateral Tubal Ligation with Filschie Clips, Left Paratubal Cystotomy SURGEON: BROOKE RANGEL ANESTHESIA: GA TISSUE REMOVED OR ALTERED: none COMPLICATIONS: None ESTIMATED BLOOD LOSS: 5ml INTRAOPERATIVE FINDINGS: 4cm left paratubal cyst noted and drained, normal bilateral ovaries, normal right fallopian tube, normal uterus. Filschie clips placed bilaterally on fallopian tubes. PROCEDURE: Anesthesiologist: IV fluids: [500ml] Urine output: [50ml] Indications: [33yo here for tubal sterilization/occlusion due to undesired fertility. She is 100% sure that she has completed childbearing. She desires to have permanent sterilzation. She declines COCPs, LARC/IUD, Nexplanon and desires permanent sterilization. The risks, benefits, alternatives were reviewed and she desires to proceed with planned procedure.] Procedure:The patient was taken to the operating room where general anesthesia was obtained without difficulty. The patient was then examined under anesthesia with findings as noted above with a small anteverted uterus. She was then placed in dorsal supine lithotomy position and prepped and draped in the normal sterile fashion. [place] speculum was then placed in the patient's vagina and the anterior lip of the cervix grasped with a single-tooth tenaculum. A clearview uterine manipulator was then advanced into the uterus to provide a means of manipulation of the uterus. The speculum and tenaculum were then removed from the patient's cervix and vagina. Attention was then turned to the patient's abdomen where a 5 mm infraumbilical skin incision was then made. The Optiview trocar with 0 laparoscope was then advanced without difficulty under direct visualization with the Optiview trocar. This was performed while tenting the abdominal wall and these will fashion. Intraperitoneal placement was confirmed by the direct visualization. Pneumoperitoneum was then obtained with approximately 4 L carbon dioxide gas. Survey of the patient's abdomen and pelvis revealed findings as noted above. A second skin incision was then made in the midline approximately 2cm above the symphysis pubis. These incisions were made under direct vizualization with the laparoscope. The second trochar was then advanced under direct visualization of the laparoscope at the sites. The right fallopian tube was then identified and followed out to the fimbriated end and filschie clips was placed in the mid ampullary portion of the fallopian tube. The right ovary was noted to be normal and vasculature remained intact to this ovary. Attention was then turned to the left adnexa at which time the left fallopian tube was identified and followed out to the fimbriated end and filschie clip placed in the mid ampullary portion of the fallopian tube. Distal the the Left filschie clip placement very large paratubal cyst noted and drained with opening with monopolar scissors. Benign fluid noted and site noted to be hemostatic. The left ovary was noted to be normal and vasculature remained intact to this ovary. All operative sites were visualized and noted to be hemostatic. The additional trochar in the midline was removed under direct visualization. The 10 mm trocar was then removed after abdominal insufflation was removed. The skin at all trocar sites were closed with 3-0 Monocryl in a subcuticular fashion with overlying Dermabond. After completion of skin closure of the trochar sites attention was then turned to the vagina where the uterine manipulator was removed and the bivalve speculum was replaced. Silver nitrate was applied to the tenaculum sites for hemostasis and the speculum was removed. Sponge lap needle and instrument counts were correct 3. The patient tolerated the procedure well and was taken to the recovery area awake and in stable condition.
== END 2019-08-04 17:35 | disposition home or self-care (01) ==
LOC: OROUT 11:29
PROVIDERS: ATTEND Student in an Organized Health Care Education/Training Program
DX: Z30.2 Encounter for sterilization (principal); N83.8 Other noninflammatory disorders of ovary, fallopian tube and broad ligament; Z87.891 Personal history of nicotine dependence; Z79.899 Other long term (current) drug therapy; Z32.2 Encounter for childbirth instruction
CPT/HCPCS: 36415; 85027; 81005; 81025; 00851; 58671; 58662; J2250; J0690; J1100; J3010; J3490 ×3; J1885; J1170; J0330; J2405; J2704; J0131; 851